=== PATIENT | male | born 1985 | race Two or more races ===

== ENCOUNTER 2016-11-13 14:44 | Inpatient (IN) | payer OTHER ==
[2016-11-13 18:25] VITALS: BMI 22.7
--- NOTE | 2016-11-13 20:21 | HP ---
COWS - Scale Resting Pulse: 1= [place] 81-100 Sweatin= Chills/Flushing Restless Observation: 3= Extraneous Movement Pupil Size: 0= Normal to Room Light Bone or Joint Aches: 2= Severe Diffuse Aches Runny Nose/ Eye Tearin= Runny Nose/Eyes GI Upset > 30mins: 3= Vomiting/Diarrhea Tremor Observation: 2= Slight Tremor Visible Yawning Observation: 0= None Anxiety or Irritability: 2=Irritable/Anxious Goose Flesh Skin: 0=Smooth Skin COWS Score: [address] [facility] - HPI Chief Complaint: withdrawal sx Allergies/Adverse Reactions: Allergies Allergy/AdvReac Type Severity Reaction Status Date / Time No Known Allergies Allergy Verified 10/09/11 16:30 History of Present Illness: 31 years old male with long history of heroin nicotine dependence has asthma denies mental illness agrees to meet with a psychiatrist for sadness while in detox Exam Limitations: No Limitations - Ebola screening Have you traveled outside of the country in the last 21 days: No Have you had contact with anyone from an Ebola affected area: No Have you been sick,other than usual withdrawal symptoms: No Do you have a fever: No - Review of Systems Constitutional: Changes in sleep, Unintentional Wgt. Loss, Unexplained wgt Loss EENT: reports: No Symptoms Reported Respiratory: reports: No Symptoms reported Cardiac: reports: No Symptoms Reported GI: reports: Nausea, Poor Fluid Intake, Vomiting, Abdominal cramping : reports: No Symptoms Reported Musculoskeletal: reports: Back Pain, Joint Pain, Muscle Pain, Neck Pain Integumentary: reports: Change in Color (right inner elbow iv heroin) Neuro: reports: Tremors Endocrine: reports: No Symptoms Reported Hematology: reports: No Symptoms Reported Psychiatric: reports: Judgement Intact, Mood/Affect Appropiate, Orientated x3 Other Systems: Reviewed and Negative Patient History - Patient Medical History Hx Anemia: No Hx Asthma: Yes Hx Chronic Obstructive Pulmonary Disease (COPD): No Hx Cancer: No Hx Cardiac Disorders: No Hx Congestive Heart Failure: No Hx Hypertension: No Hx Hypercholesterolemia: No Hx Pacemaker: No HX Cerebrovascular Accident: No Hx Seizures: No Hx Dementia: No Hx Diabetes: No Hx Gastrointestinal Disorders: No Hx Liver Disease: No Hx Genitourinary Disorders: No Hx Sexually Transmitted Disorders: No Hx Renal Disease (ESRD): No Hx Thyroid Disease: No Hx Human Immunodeficiency Virus (HIV): No Hx Hepatitis C: No Hx Depression: Yes Hx Suicide Attempt: No Hx Bipolar Disorder: No Hx Schizophrenia: No - Patient Surgical History Past Surgical History: No Hx Neurologic Surgery: No Hx Cataract Extraction: No Hx Cardiac Surgery: No Hx Lung Surgery: No Hx Breast Surgery: No Hx Breast Biopsy: No Hx Abdominal Surgery: No Hx Appendectomy: No Hx Cholecystectomy: No Hx Genitourinary Surgery: No Hx Orthopedic Surgery: No - PPD History Previous Implant?: Yes Documented Results: Negative w/o proof Implanted On Prior R Admission?: Yes Date: 07/19/11 Results: 0 MM PPD to be Administered?: Yes - Smoking Cessation Smoking history: Current every day smoker Have you smoked in the past 12 months: Yes Aproximately how many cigarettes per day: 20 Cigars Per Day: 0 Hx Chewing Tobacco Use: No Initiated information on smoking cessation: Yes 'Breaking Loose' booklet given: 11/13/16 - Substance & Tx. History Hx Alcohol Use: No Hx Substance Use: Yes Substance Use Type: Cocaine, Heroin, Marijuana, Tranquilizers Hx Substance Use Treatment: Yes (2011) - Substances Abused Heroin Route: Injection Frequency: Daily Amount used: 15 bags Age of first use: 15 Date of Last Use: 11/12/16 Cocaine Route: Injection Frequency: Daily Amount used: 15 bags Age of first use: 15 Date of Last Use: 11/13/16 Family Disease History - Family Disease History Family History: Denies Admission Physical Exam BHS - Vital Signs Vital Signs: Vital Signs - 24 hr 11/13/16 18:22 Temperature 97 F L Pulse Rate 96 H Respiratory 20 Rate Blood Pressure 131/83 - Physical General Appearance: Yes: Appropriately Dressed, Mild Distress, Thin, Tremorous, Irritable, Sweating, Anxious HEENTM: Yes: Hearing grossly Normal, Normal ENT Inspection, Normocephalic, Normal Voice Respiratory: Yes: Chest Non-Tender, No Respiratory Distress, No Accessory Muscle Use, Wheezing, Expiration Neck: Yes: Supple, Trachea in good position Breast: Yes: Breasts Symetrical Cardiology: Yes: Regular Rhythm, S1, S2, Tachycardia Abdominal: Yes: Non Tender, Soft, Increased Bowel Sounds Genitourinary: Yes: Within Normal Limits Back: Yes: Normal Inspection Musculoskeletal: Yes: full range of Motion, Gait Steady, Back pain, Muscle Pain Extremities: Yes: Normal Range of Motion, Non-Tender, Tremors Neurological: Yes: Fully Oriented, Alert, Motor Strength 5/5, Normal Response, Depressed Affect Integumentary: Yes: Warm, Track Wallace Lymphatic: Yes: Within Normal Limits - Diagnostic (1) Opioid dependence with withdrawal Current Visit: Yes Status: Acute (2) Nicotine dependence Current Visit: Yes Status: Acute Qualifiers: Nicotine product type: cigarettes Substance use status: in withdrawal Qualified Code(s): F17.213 - Nicotine dependence, cigarettes, with withdrawal; F17.213 - Nicotine dependence, cigarettes, with withdrawal (3) Asthma Current Visit: Yes Status: Chronic Qualifiers: Asthma severity: mild Asthma persistence: intermittent Asthma complication type: with status asthmaticus Qualified Code(s): J45.22 - Mild intermittent asthma with status asthmaticus; J45.22 - Mild intermittent asthma with status asthmaticus; J45.22 - Mild intermittent asthma with status asthmaticus (4) Weight loss Current Visit: Yes Status: Acute (5) Depression (emotion) Current Visit: Yes Status: Suspected Qualifiers: Depression Type: dysthymia Qualified Code(s): F34.1 - Dysthymic disorder; F34.1 - Dysthymic disorder; F34.1 - Dysthymic disorder (6) Cocaine dependence, uncomplicated Current Visit: Yes Status: Chronic (7) Cannabis dependence, uncomplicated Current Visit: Yes Status: Chronic Cleared for Admission [facility] - Detox or Rehab [facility] Level of Care: Medically Managed Detox Regimen/Protocol: Methadone [facility] Breath Alcohol Content Breath Alcohol Content: 0 Urine Drug Screen - Results Drug Screen Negative: No Urine Drug Screen Results: THC-Marijuana, EDEL-Cocaine, OPI-Opiates, BZO- Benzodiazepines
[2016-11-13] MEDS ORDERED: LOPERAMIDE HCL 2 MG CAPSULE PO PRN (20:23)
[2016-11-13] MEDS ORDERED: MAGNESIUM CITRATE 300 ML BOTTLE PO PRN (20:23)
[2016-11-13] MEDS ORDERED: ACETAMINOPHEN 325 MG TABLET (FP) PO PRN (20:23)
[2016-11-13] MEDS ORDERED: MENTHOL/PHENOL 1 EACH UD MM PRN (20:23)
[2016-11-13] MEDS ORDERED: P-EPHED 60MG/TRIPROLIDI 2.5MG TABLET PO PRN (20:23)
[2016-11-13] MEDS ORDERED: MAG HYDROX/AL HYDROX/SIMETH 30 ML UNIT-DOSE CUP PO PRN (20:23)
[2016-11-13] MEDS ORDERED: guaiFENesin/D-METHORPHAN HB 10 ML UNIT-DOSE CUPS PO PRN (20:23)
[2016-11-13] MEDS ORDERED: IBUPROFEN 400 MG TABLET (FP) PO PRN (20:23)
[2016-11-13] MEDS ORDERED: METHADONE HCL 10 MG TABLET (FOR DETOX USE ONLY) PO ONE ×2 (20:23→23:00)
[2016-11-13] MEDS ORDERED: NICOTINE POLACRILEX 4 MG GUM BUC PRN (20:25)
[2016-11-13] MEDS ORDERED: ALBUTEROL SO4 2.5/IPRATROPIUM 0.5 INH SOL 3 ML VIAL.NEB. NEB PRN (20:26)
[2016-11-13] MEDS ORDERED: ALBUTEROL SO4 18 GM HFA INHALER IH PRN (20:26)
[2016-11-13] MEDS ORDERED: METHADONE HCL 10 MG TABLET (FOR DETOX USE ONLY) ONE (22:52)
[2016-11-13] MEDS: THIAMINE HCL 100 MG TABLET (FP) PO SCH (23:04)
[2016-11-13] MEDS: diazePAM 5 MG TABLET PO PRN (23:05)
[2016-11-14 00:04] LABS: URINE APPEARANCE CLOUDY; URINE BLOOD NEGATIVE (NEGATIVE); URINE COLOR AMBER; URINE GLUCOSE (UA) NEGATIVE (NEGATIVE); URINE KETONE TRACE (NEGATIVE); URINE LEUK ESTERASE NEGATIVE (NEGATIVE); URINE NITRITE NEGATIVE (NEGATIVE); URINE PROTEIN 2+ (NEGATIVE); URINE UROBILINOGEN 4.0 E.U/dl mg/dL (0.2-1.0)
[2016-11-14 00:12] LABS: CALCIUM OXALATE CRYSTALS MODERATE /hpf (NONE SEEN); URINE HYALINE CAST 2 /lpf; URINE MUCUS RARE; URINE RBC 11 /hpf (0-3); URINE WBC 1 /hpf (3-5)
[2016-11-14] MEDS: diphenhydrAMINE HCL 50 MG CAPSULE PO PRN ×2 (02:02→22:24)
[2016-11-14] MEDS: diazePAM 5 MG TABLET PO PRN ×5 (03:16→22:24)
[2016-11-14] MEDS ORDERED: METHADONE HCL 10 MG TABLET (FOR DETOX USE ONLY) PO ONE (10:00)
[2016-11-14] MEDS: PRENATAL VITAMINS W/ FOLIC ACID TABLET (FP) PO SCH (10:13)
[2016-11-14] MEDS: NICOTINE 21 MG/24 HOURS TOPICAL PATCH TD SCH (10:13)
[2016-11-14 10:15] LABS: MCH 29.2 pg (25.7-33.7); MCHC 33.6 g/dl (32.0-35.9); MEAN PLT VOLUME 8.4 fl (7.5-11.1); PLATELET COUNT 298 K/MM3 (134-434)
[2016-11-14 10:40] LABS: ALBUMIN 2.7 g/dl (3.4-5.0)
[2016-11-14 10:54] LABS: ALK PHOS 99 U/L (45-117); ANION GAP 7 (8-16); BILIRUBIN,TOTAL 0.6 mg/dL (0.2-1.0); CALCIUM 8.9 mg/dL (8.5-10.1); CO2 29 mmol/L (21-32); CREATININE 0.7 mg/dL (0.7-1.3); GLUCOSE,RANDOM 96 mg/dL (74-106); SGOT/AST 51 U/L (15-37); SGPT/ALT 57 U/L (12-78); TOT PROT 6.1 g/dl (6.4-8.2)
--- NOTE | 2016-11-14 11:27 | PN ---
BHS COWS - Scale Resting Pulse: 1= [place] 81-100 Sweatin= Chills/Flushing Restless Observation: 3= Extraneous Movement Pupil Size: 2= Moderately Dilated Bone or Joint Aches: 4=Acute Joint/Muscle Pain Runny Nose/ Eye Tearin= Nasal Congestion GI Upset > 30mins: 1= Stomach Cramp Tremor Observation of Outstretched Hands: 2= Slight Tremor Visible Yawning Observation: 2= >3x During Session Anxiety or Irritability: 2=Irritable/Anxious Goose Flesh Skin: 0=Smooth Skin COWS Score: 19 BHS Progress Note (SOAP) Subjective: ANXIETY,SWEATS,MUSCLE TWITCHING,BACK PAIN,INTERMITTENT SLEEP. Objective: 11/14/16 11:26 Vital Signs Temperature 98.4 F 11/14/16 09:00 Pulse Rate 88 11/14/16 09:00 Respiratory Rate 18 11/14/16 09:00 Blood Pressure 119/76 11/14/16 09:00 O2 Sat by Pulse Oximetry (%) Laboratory Last Values WBC 8.0 K/mm3 (4.0-10.0) D 11/14/16 07:15 RBC 4.39 M/mm3 (4.00-5.60) 11/14/16 07:15 Hgb 12.8 GM/dL (11.7-16.9) 11/14/16 07:15 Hct 38.2 % (35.4-49) 11/14/16 07:15 MCV 87.0 fl (80-96) 11/14/16 07:15 MCH 29.2 pg (25.7-33.7) 11/14/16 07:15 MCHC 33.6 g/dl (32.0-35.9) 11/14/16 07:15 RDW 14.0 % (11.9-15.9) 11/14/16 07:15 Plt Count 298 K/MM3 (134-434) D 11/14/16 07:15 MPV 8.4 fl (7.5-11.1) 11/14/16 07:15 Sodium 139 mmol/L (136-145) 11/14/16 07:15 Potassium 4.0 mmol/L (3.5-5.1) 11/14/16 07:15 Chloride 103 mmol/L (98-107) 11/14/16 07:15 Carbon Dioxide 29 mmol/L (21-32) 11/14/16 07:15 Anion Gap 7 (8-16) L 11/14/16 07:15 BUN 9 mg/dL (7-18) D 11/14/16 07:15 Creatinine 0.7 mg/dL (0.7-1.3) D 11/14/16 07:15 Creat Clearance w eGFR > 60 (>60) 11/14/16 07:15 Random Glucose 96 mg/dL (74-106) 11/14/16 07:15 Calcium 8.9 mg/dL (8.5-10.1) 11/14/16 07:15 Total Bilirubin 0.6 mg/dL (0.2-1.0) D 11/14/16 07:15 AST 51 U/L (15-37) H D 11/14/16 07:15 ALT 57 U/L (12-78) D 11/14/16 07:15 Alkaline Phosphatase 99 U/L (45-117) D 11/14/16 07:15 Total Protein 6.1 g/dl (6.4-8.2) L 11/14/16 07:15 Albumin 2.7 g/dl (3.4-5.0) L D 11/14/16 07:15 Urine Color Marya 11/13/16 23:45 Urine Appearance Cloudy 11/13/16 23:45 Urine pH 7.0 (5.0-8.0) 11/13/16 23:45 Ur Specific [place] 1.025 (1.005-1.025) 11/13/16 23:45 Urine Protein 2+ (NEGATIVE) H 11/13/16 23:45 Urine Glucose (UA) Negative (NEGATIVE) 11/13/16 23:45 Urine Ketones Trace (NEGATIVE) H 11/13/16 23:45 Urine Blood Negative (NEGATIVE) 11/13/16 23:45 Urine Nitrite Negative (NEGATIVE) 11/13/16 23:45 Urine Bilirubin 2.0 (NEGATIVE) 11/13/16 23:45 Urine Urobilinogen 4.0 e.u/dl mg/dL (0.2-1.0) 11/13/16 23:45 Urine RBC 11 /hpf (0-3) 11/13/16 23:45 Urine WBC 1 /hpf (3-5) 11/13/16 23:45 Calcium Oxalate Crystal Moderate /hpf (NONE SEEN) 11/13/16 23:45 Hyaline Casts 2 /lpf 11/13/16 23:45 Urine Mucus Rare 11/13/16 23:45 Assessment: 11/14/16 11:27 WITHDRAWAL SX Plan: CONTINUE DETOX
--- NOTE | 2016-11-14 12:30 | CONSULT ---
[facility] Psychiatric Consult - Data Date of interview: 11/14/16 Admission source: [facility] Identifying data: Mr Romero is a 31 years old single male, father of 4 children, unemployed on public assistance, homeless Substance Abuse History: Reports history of heroin and cocaine use. He started using both heroin and cocaine at age 15, consumes 15 bags of each daily. Last used cocaine on 11/13/16 & heroin on 11/14/16 Medical History: Significant for Asthma. Smokes cigarettes 1ppd Psychiatric History: Reports being diagnosed with Bipolar Disorder in 1998. Reports 3 previous psychiatric admissions in [place]. Most recent one was in 2001. Reports receiving psychiatric services at a clinic in the [place] and he is prescribed Depakote 250 mg po BID. Denies hisory of suicidal attempt. At reports feeling depressed and sleeping poorly Additional Comment: Reports history of 3 previous arrrests including one felony conviction. Reports being on parole till 2021 Mental Status Exam - Mental Status Exam Alert and Oriented to: Time, Place, Person Cognitive Function: Fair Patient Appearance: Well Groomed Mood: Depressed Affect: Appropriate Patient Behavior: Cooperative Speech Pattern: Clear Voice Loudness: Normal Thought Process: Intact Thought Disorder: Not Present Hallucinations: Denies Suicidal Ideation: Denies Homicidal Ideation: Denies Insight/Judgement: Poor Sleep: Poorly Appetite: Good Muscle strength/Tone: Normal Gait/Station: Normal Psychiatric Findings - Problem List ([place] 1, 2,3) (1) bipolar disorder Current Visit: No Status: Active (2) Substance-induced sleep disorder Current Visit: Yes Status: Acute (3) Opioid dependence with withdrawal Current Visit: Yes Status: Acute (4) Cocaine dependence, uncomplicated Current Visit: Yes Status: Chronic (5) Nicotine dependence Current Visit: Yes Status: Acute Qualifiers: Nicotine product type: cigarettes Substance use status: in withdrawal Qualified Code(s): F17.213 - Nicotine dependence, cigarettes, with withdrawal; F17.213 - Nicotine dependence, cigarettes, with withdrawal (6) Asthma Current Visit: Yes Status: Chronic Qualifiers: Asthma severity: mild Asthma persistence: intermittent Asthma complication type: with status asthmaticus Qualified Code(s): J45.22 - Mild intermittent asthma with status asthmaticus; J45.22 - Mild intermittent asthma with status asthmaticus; J45.22 - Mild intermittent asthma with status asthmaticus - Initial Treatment Plan Initial Treatment Plan: 1) Continue Depakote 250 mg po BID. 2) Start TTrazadone 100 mg po HS for insomnia. 3) Valproic Acid serum level. 4) Continue inpatient detixification
[2016-11-14] MEDS: DIVALPROEX SODIUM 250 MG TABLET E.C. (FP) PO SCH ×2 (14:06→22:24)
[2016-11-14] MEDS: CYCLOBENZAPRINE HCL 10 MG TABLET (FP) PO PRN ×2 (14:08→22:24)
--- NOTE | 2016-11-14 14:21 | EKG ---
Test Reason : Blood Pressure : / mmHG Vent. Rate : 084 BPM Atrial Rate : 084 BPM P-R Int : 140 ms QRS Dur : 086 ms QT Int : 342 ms P-R-T Axes : 073 095 062 degrees QTc Int : 404 ms NORMAL SINUS RHYTHM RIGHTWARD AXIS BORDERLINE ECG NO PREVIOUS ECGS AVAILABLE Confirmed by AYESHA LANTIGUA, ALINA ([id number]) on 11/14/2016 2:21:21 PM Referred By: Confirmed By:ALINA HODGE MD
[2016-11-14] MEDS: MAGNESIUM HYDROX 2400MG/30ML ORAL SUSPENSION 30 ML CUP PO PRN (19:33)
[2016-11-14] MEDS: THIAMINE HCL 100 MG TABLET (FP) PO SCH (22:24)
[2016-11-14] MEDS: traZODone HCL 100 MG TABLET (FP) PO SCH (22:24)
[2016-11-15] MEDS: CYCLOBENZAPRINE HCL 10 MG TABLET (FP) PO PRN ×3 (01:27→22:12)
[2016-11-15] MEDS: diazePAM 5 MG TABLET PO PRN ×4 (06:11→22:35)
[2016-11-15] MEDS ORDERED: METHADONE HCL 5 MG TABLET (FOR DETOX USE ONLY) PO ONE (10:00)
[2016-11-15] MEDS: PRENATAL VITAMINS W/ FOLIC ACID TABLET (FP) PO SCH (10:09)
[2016-11-15] MEDS: DIVALPROEX SODIUM 250 MG TABLET E.C. (FP) PO SCH ×2 (10:09→22:10)
[2016-11-15] MEDS: NICOTINE 21 MG/24 HOURS TOPICAL PATCH TD SCH (10:09)
--- NOTE | 2016-11-15 11:32 | PN ---
BHS COWS - Scale Resting Pulse: 2= [place] 101-120 Sweatin= Chills/Flushing Restless Observation: 3= Extraneous Movement Pupil Size: 0= Normal to Room Light Bone or Joint Aches: 4=Acute Joint/Muscle Pain Runny Nose/ Eye Tearin= Nasal Congestion GI Upset > 30mins: 1= Stomach Cramp Tremor Observation of Outstretched Hands: 1= Tremor [place], Not Seen Yawning Observation: 2= >3x During Session Anxiety or Irritability: 2=Irritable/Anxious Goose Flesh Skin: 0=Smooth Skin COWS Score: 17 BHS Progress Note (SOAP) Subjective: ANXIETY,SWEATS,IRRITABILITY,AGITATIONS,DIARRHEA,BODYACHES Objective: 11/15/16 11:31 Vital Signs Temperature 97.4 F L 11/15/16 09:50 Pulse Rate 105 H 11/15/16 09:50 Respiratory Rate 18 11/15/16 09:50 Blood Pressure 113/66 11/15/16 09:50 O2 Sat by Pulse Oximetry (%) Laboratory Last Values WBC 8.0 K/mm3 (4.0-10.0) D 11/14/16 07:15 RBC 4.39 M/mm3 (4.00-5.60) 11/14/16 07:15 Hgb 12.8 GM/dL (11.7-16.9) 11/14/16 07:15 Hct 38.2 % (35.4-49) 11/14/16 07:15 MCV 87.0 fl (80-96) 11/14/16 07:15 MCH 29.2 pg (25.7-33.7) 11/14/16 07:15 MCHC 33.6 g/dl (32.0-35.9) 11/14/16 07:15 RDW 14.0 % (11.9-15.9) 11/14/16 07:15 Plt Count 298 K/MM3 (134-434) D 11/14/16 07:15 MPV 8.4 fl (7.5-11.1) 11/14/16 07:15 Sodium 139 mmol/L (136-145) 11/14/16 07:15 Potassium 4.0 mmol/L (3.5-5.1) 11/14/16 07:15 Chloride 103 mmol/L (98-107) 11/14/16 07:15 Carbon Dioxide 29 mmol/L (21-32) 11/14/16 07:15 Anion Gap 7 (8-16) L 11/14/16 07:15 BUN 9 mg/dL (7-18) D 11/14/16 07:15 Creatinine 0.7 mg/dL (0.7-1.3) D 11/14/16 07:15 Creat Clearance w eGFR > 60 (>60) 11/14/16 07:15 Random Glucose 96 mg/dL (74-106) 11/14/16 07:15 Calcium 8.9 mg/dL (8.5-10.1) 11/14/16 07:15 Total Bilirubin 0.6 mg/dL (0.2-1.0) D 11/14/16 07:15 AST 51 U/L (15-37) H D 11/14/16 07:15 ALT 57 U/L (12-78) D 11/14/16 07:15 Alkaline Phosphatase 99 U/L (45-117) D 11/14/16 07:15 Total Protein 6.1 g/dl (6.4-8.2) L 11/14/16 07:15 Albumin 2.7 g/dl (3.4-5.0) L D 11/14/16 07:15 Urine Color Marya 11/13/16 23:45 Urine Appearance Cloudy 11/13/16 23:45 Urine pH 7.0 (5.0-8.0) 11/13/16 23:45 Ur Specific [place] 1.025 (1.005-1.025) 11/13/16 23:45 Urine Protein 2+ (NEGATIVE) H 11/13/16 23:45 Urine Glucose (UA) Negative (NEGATIVE) 11/13/16 23:45 Urine Ketones Trace (NEGATIVE) H 11/13/16 23:45 Urine Blood Negative (NEGATIVE) 11/13/16 23:45 Urine Nitrite Negative (NEGATIVE) 11/13/16 23:45 Urine Bilirubin 2.0 (NEGATIVE) 11/13/16 23:45 Urine Urobilinogen 4.0 e.u/dl mg/dL (0.2-1.0) 11/13/16 23:45 Urine RBC 11 /hpf (0-3) 11/13/16 23:45 Urine WBC 1 /hpf (3-5) 11/13/16 23:45 Calcium Oxalate Crystal Moderate /hpf (NONE SEEN) 11/13/16 23:45 Hyaline Casts 2 /lpf 11/13/16 23:45 Urine Mucus Rare 11/13/16 23:45 Valproic Acid < 3.000 ug/ml (50-100) L 11/15/16 06:00 RPR Titer Nonreactive (NONREACTIVE) 11/14/16 07:15 Hepatitis C Antibody >11.0 s/co ratio (0.0-0.9) H 11/13/16 07:15 Assessment: 11/15/16 11:32 WITHDRAWAL SX Plan: CONTINUE DETOX
[2016-11-15] MEDS: MAGNESIUM HYDROX 2400MG/30ML ORAL SUSPENSION 30 ML CUP PO PRN (18:30)
[2016-11-15] MEDS: THIAMINE HCL 100 MG TABLET (FP) PO SCH (22:10)
[2016-11-15] MEDS: traZODone HCL 100 MG TABLET (FP) PO SCH (22:10)
[2016-11-16] MEDS: diazePAM 5 MG TABLET PO PRN ×3 (07:24→17:22)
[2016-11-16] MEDS ORDERED: METHADONE HCL 5 MG TABLET (FOR DETOX USE ONLY) PO ONE (10:00)
[2016-11-16] MEDS: PRENATAL VITAMINS W/ FOLIC ACID TABLET (FP) PO SCH (10:18)
[2016-11-16] MEDS: DIVALPROEX SODIUM 250 MG TABLET E.C. (FP) PO SCH ×2 (10:18→22:36)
[2016-11-16] MEDS: NICOTINE 21 MG/24 HOURS TOPICAL PATCH TD SCH (10:19)
--- NOTE | 2016-11-16 14:57 | PN ---
BHS Progress Note (SOAP) Subjective: Sweating, Stomach cramping, Diarrhea, Interrupted sleep, Fatigue, Tremors. Objective: PT. A & O X 2 (DISORIENTED ABOUT DAY / DATE). NO ACUTE DSITRESS. 11/16/16 14:56 Vital Signs Temperature 98.4 F 11/16/16 13:25 Pulse Rate 95 H 11/16/16 13:25 Respiratory Rate 18 11/16/16 13:25 Blood Pressure 103/60 11/16/16 13:25 O2 Sat by Pulse Oximetry (%) Laboratory Tests 11/13/16 11/13/16 11/14/16 07:15 23:45 07:15 WBC 8.0 D RBC 4.39 Hgb 12.8 Hct 38.2 MCV 87.0 MCH 29.2 MCHC 33.6 RDW 14.0 Plt Count 298 D MPV 8.4 Sodium Potassium Chloride Carbon Dioxide Anion Gap BUN Creatinine Creat Clearance w eGFR Random Glucose Calcium Total Bilirubin AST ALT Alkaline Phosphatase Total Protein Albumin Urine Color Marya Urine Appearance Cloudy Urine pH 7.0 Ur Specific [place] 1.025 Urine Protein 2+ H Urine Glucose (UA) Negative Urine Ketones Trace H Urine Blood Negative Urine Nitrite Negative Urine Bilirubin 2.0 Urine Urobilinogen 4.0 e.u/dl Urine RBC 11 Urine WBC 1 Calcium Oxalate Crystal Moderate Hyaline Casts 2 Urine Mucus Rare Valproic Acid RPR Titer Hepatitis C Antibody >11.0 H 11/14/16 11/14/16 11/15/16 07:15 07:15 06:00 WBC RBC Hgb Hct MCV MCH MCHC RDW Plt Count MPV Sodium 139 Potassium 4.0 Chloride 103 Carbon Dioxide 29 Anion Gap 7 L BUN 9 D Creatinine 0.7 D Creat Clearance w eGFR > 60 Random Glucose 96 Calcium 8.9 Total Bilirubin 0.6 D AST 51 H D ALT 57 D Alkaline Phosphatase 99 D Total Protein 6.1 L Albumin 2.7 L D Urine Color Urine Appearance Urine pH Ur Specific [place] Urine Protein Urine Glucose (UA) Urine Ketones Urine Blood Urine Nitrite Urine Bilirubin Urine Urobilinogen Urine RBC Urine WBC Calcium Oxalate Crystal Hyaline Casts Urine Mucus Valproic Acid < 3.000 L RPR Titer Nonreactive Hepatitis C Antibody LABS NOTED. Assessment: 11/16/16 14:57 WITHDRAWAL SYMPTOMS. Plan: CONTINUE DETOX. INCREASE DAILY PO FLUID INTAKE.
[2016-11-16] MEDS: traZODone HCL 100 MG TABLET (FP) PO SCH (22:36)
[2016-11-16] MEDS: diphenhydrAMINE HCL 50 MG CAPSULE PO PRN (22:36)
[2016-11-16] MEDS: CYCLOBENZAPRINE HCL 10 MG TABLET (FP) PO PRN (22:36)
[2016-11-16] MEDS: THIAMINE HCL 100 MG TABLET (FP) PO SCH (22:36)
[2016-11-17] MEDS ORDERED: METHADONE HCL 10 MG TABLET (FOR DETOX USE ONLY) PO ONE (10:00)
[2016-11-17] MEDS: NICOTINE 21 MG/24 HOURS TOPICAL PATCH TD SCH (10:03)
[2016-11-17] MEDS: DIVALPROEX SODIUM 250 MG TABLET E.C. (FP) PO SCH ×2 (10:03→22:13)
[2016-11-17] MEDS: CYCLOBENZAPRINE HCL 10 MG TABLET (FP) PO PRN ×2 (10:03→22:13)
[2016-11-17] MEDS: PRENATAL VITAMINS W/ FOLIC ACID TABLET (FP) PO SCH (10:03)
[2016-11-17] MEDS: MAGNESIUM HYDROX 2400MG/30ML ORAL SUSPENSION 30 ML CUP PO PRN (12:25)
[2016-11-17] MEDS ORDERED: hydrOXYzine PAMOATE 50 MG CAPSULE (FP) PO PRN (16:50)
--- NOTE | 2016-11-17 16:50 | PN ---
BHS Progress Note (SOAP) Subjective: Sweating,interrupted sleep,restless Objective: 11/17/16 16:49 Vital Signs - 8 hr 11/17/16 11/17/16 09:16 13:16 Temperature 98.3 F 97.5 F L Pulse Rate 73 104 H Respiratory 16 20 Rate Blood Pressure 105/55 132/76 Laboratory Tests 11/13/16 11/13/16 11/14/16 07:15 23:45 07:15 WBC 8.0 D RBC 4.39 Hgb 12.8 Hct 38.2 MCV 87.0 MCH 29.2 MCHC 33.6 RDW 14.0 Plt Count 298 D MPV 8.4 Sodium Potassium Chloride Carbon Dioxide Anion Gap BUN Creatinine Creat Clearance w eGFR Random Glucose Calcium Total Bilirubin AST ALT Alkaline Phosphatase Total Protein Albumin Urine Color Marya Urine Appearance Cloudy Urine pH 7.0 Ur Specific [place] 1.025 Urine Protein 2+ H Urine Glucose (UA) Negative Urine Ketones Trace H Urine Blood Negative Urine Nitrite Negative Urine Bilirubin 2.0 Urine Urobilinogen 4.0 e.u/dl Urine RBC 11 Urine WBC 1 Calcium Oxalate Crystal Moderate Hyaline Casts 2 Urine Mucus Rare Valproic Acid RPR Titer Hepatitis C Antibody >11.0 H 11/14/16 11/14/16 11/15/16 07:15 07:15 06:00 WBC RBC Hgb Hct MCV MCH MCHC RDW Plt Count MPV Sodium 139 Potassium 4.0 Chloride 103 Carbon Dioxide 29 Anion Gap 7 L BUN 9 D Creatinine 0.7 D Creat Clearance w eGFR > 60 Random Glucose 96 Calcium 8.9 Total Bilirubin 0.6 D AST 51 H D ALT 57 D Alkaline Phosphatase 99 D Total Protein 6.1 L Albumin 2.7 L D Urine Color Urine Appearance Urine pH Ur Specific [place] Urine Protein Urine Glucose (UA) Urine Ketones Urine Blood Urine Nitrite Urine Bilirubin Urine Urobilinogen Urine RBC Urine WBC Calcium Oxalate Crystal Hyaline Casts Urine Mucus Valproic Acid < 3.000 L RPR Titer Nonreactive Hepatitis C Antibody labs noted Assessment: 11/17/16 16:50 Withdrawal sx. Plan: Continue detox
[2016-11-17] MEDS: traZODone HCL 100 MG TABLET (FP) PO SCH (22:13)
[2016-11-17] MEDS: THIAMINE HCL 100 MG TABLET (FP) PO SCH (22:13)
[2016-11-18] MEDS ORDERED: METHADONE HCL 5 MG TABLET (FOR DETOX USE ONLY) PO ONE (06:00)
[2016-11-18] MEDS: CYCLOBENZAPRINE HCL 10 MG TABLET (FP) PO PRN (06:09)
--- NOTE | 2016-11-18 08:44 | DS ---
[facility] Detox Discharge Summary Admission Date: 11/13/16 Discharge Date: 11/18/16 - History Present History: Cannabis Dependence, Cocaine Dependence, Opioid Dependence Additional Comments: Detox completed. Patient is alert and oriented x 3 and in no acute distress. patient encouraged to follow up with PMD at [facility] for medical management. Pertinent Past History: Asthma, Nicotine dependence - Physical Exam Results Vital Signs: Vital Signs Temperature 96.1 F L 11/18/16 06:19 Pulse Rate 87 11/18/16 06:19 Respiratory Rate 16 11/18/16 06:19 Blood Pressure 110/60 11/18/16 06:19 O2 Sat by Pulse Oximetry (%) Laboratory Last Values WBC 8.0 K/mm3 (4.0-10.0) D 11/14/16 07:15 RBC 4.39 M/mm3 (4.00-5.60) 11/14/16 07:15 Hgb 12.8 GM/dL (11.7-16.9) 11/14/16 07:15 Hct 38.2 % (35.4-49) 11/14/16 07:15 MCV 87.0 fl (80-96) 11/14/16 07:15 MCH 29.2 pg (25.7-33.7) 11/14/16 07:15 MCHC 33.6 g/dl (32.0-35.9) 11/14/16 07:15 RDW 14.0 % (11.9-15.9) 11/14/16 07:15 Plt Count 298 K/MM3 (134-434) D 11/14/16 07:15 MPV 8.4 fl (7.5-11.1) 11/14/16 07:15 Sodium 139 mmol/L (136-145) 11/14/16 07:15 Potassium 4.0 mmol/L (3.5-5.1) 11/14/16 07:15 Chloride 103 mmol/L (98-107) 11/14/16 07:15 Carbon Dioxide 29 mmol/L (21-32) 11/14/16 07:15 Anion Gap 7 (8-16) L 11/14/16 07:15 BUN 9 mg/dL (7-18) D 11/14/16 07:15 Creatinine 0.7 mg/dL (0.7-1.3) D 11/14/16 07:15 Creat Clearance w eGFR > 60 (>60) 11/14/16 07:15 Random Glucose 96 mg/dL (74-106) 11/14/16 07:15 Calcium 8.9 mg/dL (8.5-10.1) 11/14/16 07:15 Total Bilirubin 0.6 mg/dL (0.2-1.0) D 11/14/16 07:15 AST 51 U/L (15-37) H D 11/14/16 07:15 ALT 57 U/L (12-78) D 11/14/16 07:15 Alkaline Phosphatase 99 U/L (45-117) D 11/14/16 07:15 Total Protein 6.1 g/dl (6.4-8.2) L 11/14/16 07:15 Albumin 2.7 g/dl (3.4-5.0) L D 11/14/16 07:15 Urine Color Marya 11/13/16 23:45 Urine Appearance Cloudy 11/13/16 23:45 Urine pH 7.0 (5.0-8.0) 11/13/16 23:45 Ur Specific [place] 1.025 (1.005-1.025) 11/13/16 23:45 Urine Protein 2+ (NEGATIVE) H 11/13/16 23:45 Urine Glucose (UA) Negative (NEGATIVE) 11/13/16 23:45 Urine Ketones Trace (NEGATIVE) H 11/13/16 23:45 Urine Blood Negative (NEGATIVE) 11/13/16 23:45 Urine Nitrite Negative (NEGATIVE) 11/13/16 23:45 Urine Bilirubin 2.0 (NEGATIVE) 11/13/16 23:45 Urine Urobilinogen 4.0 e.u/dl mg/dL (0.2-1.0) 11/13/16 23:45 Urine RBC 11 /hpf (0-3) 11/13/16 23:45 Urine WBC 1 /hpf (3-5) 11/13/16 23:45 Calcium Oxalate Crystal Moderate /hpf (NONE SEEN) 11/13/16 23:45 Hyaline Casts 2 /lpf 11/13/16 23:45 Urine Mucus Rare 11/13/16 23:45 Valproic Acid < 3.000 ug/ml (50-100) L 11/15/16 06:00 RPR Titer Nonreactive (NONREACTIVE) 11/14/16 07:15 Hepatitis C Antibody >11.0 s/co ratio (0.0-0.9) H 11/13/16 07:15 Labs reviewed. Will F/U with PMD for further evaluation of Hep c result. Pertinent Admission Physical Exam Findings: Withdrawal sx - Treatment Hospital Course: Detox Protocol Followed, Detoxed Safely, Responded well, Discharged Condition Good Patient has Accepted a Rehab Referral to: [facility] [place] - Medication Discharge Medications: Ambulatory Orders Quetiapine Fumarate [Seroquel -] 200 mg PO BID #0 tablet 07/24/11 Trazodone HCl [Desyrel -] 200 mg PO HS #0 tablet 10/13/11 - Diagnosis (1) Cannabis dependence, uncomplicated Current Visit: Yes Status: Acute (2) Cocaine dependence, uncomplicated Current Visit: Yes Status: Acute (3) Nicotine dependence Current Visit: Yes Status: Acute Qualifiers: Nicotine product type: cigarettes Substance use status: in withdrawal Qualified Code(s): F17.213 - Nicotine dependence, cigarettes, with withdrawal; F17.213 - Nicotine dependence, cigarettes, with withdrawal (4) Opioid dependence with withdrawal Current Visit: Yes Status: Acute (5) Substance-induced sleep disorder Current Visit: Yes Status: Chronic (6) Asthma Current Visit: Yes Status: Chronic Qualifiers: Asthma severity: mild Asthma persistence: intermittent (7) Depression (emotion) Current Visit: Yes Status: Chronic Qualifiers: Depression Type: dysthymia Qualified Code(s): F34.1 - Dysthymic disorder; F34.1 - Dysthymic disorder; F34.1 - Dysthymic disorder - AMA Did Patient Leave Against Medical Advice: No
[2016-11-18] MEDS: NICOTINE 21 MG/24 HOURS TOPICAL PATCH TD SCH (10:25)
[2016-11-18] MEDS: DIVALPROEX SODIUM 250 MG TABLET E.C. (FP) PO SCH (10:26)
[2016-11-18] MEDS: PRENATAL VITAMINS W/ FOLIC ACID TABLET (FP) PO SCH (10:26)
[2016-11-18 10:35] VITALS: BP 107/67; PULSE 103; TEMP 97.9
--- NOTE | 2016-11-18 15:58 | PN ---
S Progress Note Note: discharge summary done with Supervision by Dr. Mitchell, note reviewed with Eri Guerra NP
== END 2016-11-18 11:45 | disposition other institution (70) | DRG 770 ==
LOC: YASAS 14:44 → Y3N 22:02
PROVIDERS: ADMIT Internal Medicine; ATTEND Internal Medicine
PROC: HZ2ZZZZ Detoxification Services for Substance Abuse Treatment (ICD-10-PCS; principal; 2016-11-13)
DX: F11.23 Opioid dependence with withdrawal (principal); F14.20 Cocaine dependence, uncomplicated; F12.20 Cannabis dependence, uncomplicated; F17.213 Nicotine dependence, cigarettes, with withdrawal; F34.1 Dysthymic disorder; F19.282 Other psychoactive substance dependence with psychoactive substance-induced sleep disorder; J45.20 Mild intermittent asthma, uncomplicated; Z87.898 Personal history of other specified conditions; Z59.0 Homelessness
CPT/HCPCS: 36415; 80053; 80164; 81003; 81015; 85027; 86593; 86803; 87522; 93005; 93010